=== PATIENT | female | born 1975 | race Caucasian/White ===

== ENCOUNTER 2018-12-14 05:31 | Observation (INO) | payer OTHER ==
[2018-12-14] MEDS ORDERED: CEFAZOLIN 2 GM/50 ML (PMX) 50 ML IVPB (08:00)
[2018-12-14] MEDS: BUPIVACAINE 0.5%/EPI (SDV) 10 ML INJ (08:40)
[2018-12-14] MEDS ORDERED: FENTAnyl 50 MCG/ML VIAL IV (09:00)
[2018-12-14] MEDS ORDERED: MEPERIDINE 25 MG INJ IV (09:00)
[2018-12-14] MEDS ORDERED: DIPHENHYDRAMINE 50 MG INJ IV (09:00)
[2018-12-14] MEDS ORDERED: EPHEDrine 25 MG/5 ML SYG IV (09:00)
[2018-12-14] MEDS ORDERED: LABETALOL HCL 20MG INJ IV (09:00)
[2018-12-14] MEDS ORDERED: OXYCODONE/ACETAMINOPHEN (5/325) TAB PO (09:00)
[2018-12-14] MEDS ORDERED: METOCLOPRAMIDE 10 MG INJ IV (09:00)
[2018-12-14] MEDS ORDERED: HYDROmorphONE 1 MG/5 ML IV SYRINGE IV (09:00)
[2018-12-14] MEDS ORDERED: KETOROLAC 30 MG INJ IV (10:00)
[2018-12-14] MEDS: FENTAnyl 50 MCG/ML VIAL IV ×2 (10:36→11:06)
[2018-12-14] MEDS: ONDANSETRON 4 MG INJ IV (10:36)
[2018-12-14] MEDS: HYDROmorphONE 1 MG/5 ML IV SYRINGE IV (10:56)
[2018-12-14] MEDS: DEXTROSE 5%-0.9% NACL 1,000 ML IV ×3 (15:33→22:53)
[2018-12-14] MEDS: KETOROLAC 15 MG INJ IV (18:04)
[2018-12-14] MEDS: HYDROCODONE/APAP (5/325) TAB PO (22:51)
[2018-12-15] MEDS: KETOROLAC 15 MG INJ IV ×2 (01:39→09:00)
[2018-12-15] MEDS: DEXTROSE 5%-0.9% NACL 1,000 ML IV (08:56)
== END 2018-12-15 14:50 | disposition home or self-care (01) ==
LOC: SDS 05:31 → REC 12:27 → PP2 15:45
DX: N83.8 Other noninflammatory disorders of ovary, fallopian tube and broad ligament (principal); N83.201 Unspecified ovarian cyst, right side; N73.6 Female pelvic peritoneal adhesions (postinfective); N80.1 Endometriosis of ovary
CPT/HCPCS: 49321; 88307; 96360; 96361